=== PATIENT | male | born 1975 | race Two or more races ===

== ENCOUNTER 2018-05-08 15:39 | Outpatient (CLI) | payer OTHER | END 2018-05-15 10:08 | disposition home or self-care (01) | LOC: CFH 15:39 | PROVIDERS: ATTEND Nurse Practitioner Primary Care | DX: Z02.9 Encounter for administrative examinations, unspecified (principal) ==

== ENCOUNTER → 2018-05-23 | Outpatient (CLI) | payer OTHER | END | disposition home or self-care (01) | LOC: CFH 14:29 | PROVIDERS: ATTEND Physician Assistant | DX: M51.37 Other intervertebral disc degeneration, lumbosacral region (principal); M48.07 Spinal stenosis, lumbosacral region | CPT/HCPCS: 72148; 76700 ==

== ENCOUNTER 2018-11-28 13:04 | Inpatient (IN) | payer OTHER ==
[~2018-11-28] VITALS: Ht 188 cm; Wt 75.1 kg
--- NOTE | 2018-11-28 13:14 | NUR ---
pt brought in by ems after being found in his appt. he called 911 prior to losing responsiveness. he arrived to our e.r. w an IO piv, and supplemental o2 via mask.
[2018-11-28] MEDS ORDERED: KETAMINE 10 MG/ML, 20ML ONE (13:16)
[2018-11-28] MEDS: PROPOFOL 100 ML IV PRN ×3 (13:19→20:36)
--- NOTE | 2018-11-28 13:20 | NUR ---
unable to obtain background data from pt or ems. our clinical screen is incomplete
[2018-11-28] MEDS ORDERED: SODIUM CHLORIDE FLUSH 10ML SYR IVF ONE (13:30)
[2018-11-28] MEDS ORDERED: SUCCINYLCHOLINE 20 MG/ML, 10ML IVPush ONE ×2 (13:30)
[2018-11-28] MEDS ORDERED: KETAMINE 100 MG/ML, 5ML IV ONE (13:30)
[2018-11-28] MEDS ORDERED: methylPREDNISolone SOD SUCC 125 MG/2 ML IVP ONE (13:30)
[2018-11-28 13:43] LABS: FIO2 100 %
[2018-11-28] MEDS ORDERED: FENTANYL PF 100 MCG/2ML ONE ×2 (13:44→14:07)
[2018-11-28] MEDS: FENTANYL PF 100 MCG/2ML IVPush PRN ×2 (13:46→14:11)
[2018-11-28] MEDS ORDERED: DEXAMETHASONE 4 MG/ML, 1ML IVPush ONE (14:00)
[2018-11-28] MEDS ORDERED: PIPERACILLIN/TAZO/PMX 4.5GM 100 ML IV ONE (14:00)
[2018-11-28] MEDS ORDERED: DEXAMETHASONE 4 MG/ML, 5ML ONE (14:07)
[2018-11-28 14:08] LABS: BASOPHILS % (AUTO) 0 % (0-1); EOSINOPHILS % (AUTO) 0 % (1-7); LYMPHOCYTES # (AUTO) 0.68 x10^3/uL (1-3.4); LYMPHOCYTES % (AUTO) 7 % (22-44); MD MORPH REVIEW ONLY; MEAN CORPUSCULAR HEMOGLOBIN 17.9 pg (27.5-34.5); MEAN PLATELET VOLUME 7.2 fL (7.4-10.4); MONOCYTES # (AUTO) 0.54 x10^3/uL (0.2-0.8); MONOCYTES % (AUTO) 6 % (2-9); NEUTROPHILS % (AUTO) 87 % (42-75); PLATELET COUNT 123 x10^3/uL (130-400); RED BLOOD COUNT 5.88 x10^6/uL (4.38-5.82)
[2018-11-28 14:10] LABS: MEAN CORPUSCULAR HGB CONC 29.9 g/dL (33.2-36.2); RED CELL DISTRIBUTION WIDTH 25.2 % (9.4-14.8)
[2018-11-28 14:11] LABS: ANISOCYTOSIS 2+; HYPOCHROMIA 1+; POLYCHROMASIA 1+
[2018-11-28 14:12] LABS: <PLATELET ESTIMATE> ADEQUATE; <PLT MORPHOLOGY> NORMAL PLT MORPH; MICROCYTOSIS 1+; TARGET CELLS 1+
[2018-11-28 14:13] LABS: ALANINE AMINOTRANSFERASE 63 U/L (12-78); ALBUMIN 3.6 g/dL (3.4-5.0); ANION GAP 14 mmol/L (5-15); CALCIUM 7.5 mg/dL (8.5-10.1); CHLORIDE 85 mmol/L (98-107); CREATININE 0.76 mg/dL (0.7-1.3)
[2018-11-28 14:16] LABS: ALKALINE PHOSPHATASE 102 U/L (45-117); BILIRUBIN,TOTAL 1.5 mg/dL (0.2-1.0); TOTAL PROTEIN 6.9 g/dL (6.4-8.2)
[2018-11-28 14:20] LABS: AMPHETAMINE SCREEN, URINE Negative (Negative); BARBITURATE SCREEN, URINE Negative (Negative); BENZODIAZEPINE SCREEN, URINE Negative (Negative); CANNABINOID SCREEN, URINE Negative (Negative); COCAINE SCREEN, URINE Negative (Negative); METHADONE SCREEN, URINE Negative (Negative); OPIATE SCREEN, URINE Negative (Negative)
[2018-11-28] MEDS ORDERED: FENTANYL PF 2,500 MCG in SODIUM CHLORIDE 0.9% 200 ML IV PRN (14:30)
[2018-11-28] MEDS ORDERED: FENTANYL PF 100 MCG/2ML IVPush PRN ×2 (14:30→16:30)
--- NOTE | 2018-11-28 14:32 | NUR ---
Per EMS dispatch, pt's age is 43
[2018-11-28] MEDS ORDERED: PROPOFOL 10 MG/ML, 100ML IV ONE (14:33)
[2018-11-28] MEDS ORDERED: SUCCINYLCHOLINE 20 MG/ML, 10ML ONE (14:33)
[2018-11-28] MEDS ORDERED: ETOMIDATE 20 MG/10 ML ONE (14:33)
[2018-11-28 14:54] LABS: CULTURE INDICATED? YES; MICROSCOPIC INDICATED
--- NOTE | 2018-11-28 15:21 | NUR ---
Pt back from CT
[2018-11-28] MEDS ORDERED: OMNIPAQUE 350 MG/ML, 150 ML BOTTLE ONE (15:24)
[2018-11-28] MEDS ORDERED: SODIUM CHLORIDE 0.9% 1,000ML IVBOLUS ONE (16:00)
[2018-11-28] MEDS ORDERED: SODIUM CHLORIDE 0.9% 1,000 ML IV SCH (16:03)
[2018-11-28] MEDS ORDERED: BISACODYL 10 MG SUPP PR PRN (16:30)
[2018-11-28] MEDS ORDERED: LIDOCAINE-MPF 1%, 2ML ENDO PRN (16:30)
[2018-11-28] MEDS ORDERED: SENNA/DOCUSATE TABLET NG PRN (16:30)
[2018-11-28] MEDS ORDERED: SENNA 176 MG/5 ML ORAL SOL NG PRN (16:30)
[2018-11-28] MEDS ORDERED: LACTULOSE 20 GM/30 ML UDC NG PRN (16:30)
[2018-11-28] MEDS ORDERED: ONDANSETRON 2MG/ML, 2ML IVPush PRN (16:30)
[2018-11-28] MEDS ORDERED: ACETAMINOPHEN 325 MG TABLET PO PRN (16:30)
[2018-11-28] MEDS ORDERED: PHARMACY MAY ADJ FOR RENAL FX MC SCH (16:30)
[2018-11-28] MEDS ORDERED: HALOPERIDOL 5 MG/ML IV PRN (17:00)
[2018-11-28 17:06] LABS: ANION GAP 13 mmol/L (5-15); CALCIUM 6.8 mg/dL (8.5-10.1); CHLORIDE 92 mmol/L (98-107)
[2018-11-28 17:09] LABS: TROPONIN I < 0.015 ng/mL (0.000-0.045)
[2018-11-28 17:43] VITALS: BP 107/74
[2018-11-28] MEDS: LINEZOLID PMX 600MG/300ML 300 ML IV SCH (17:43)
[2018-11-28] MEDS: DEXAMETHASONE 4 MG/ML, 1ML IVPush SCH ×2 (17:43→22:41)
[2018-11-28] MEDS: ENOXAPARIN 40 MG/0.4 ML SQ SCH (17:44)
[2018-11-28] MEDS: ALBUTEROL/IPRATROPIUM 2.5MG/0.5MG, 3 ML INLINE SCH ×2 (18:48→22:16)
[2018-11-28 20:05] LABS: ANION GAP 14 mmol/L (5-15); CALCIUM 7.6 mg/dL (8.5-10.1); CHLORIDE 94 mmol/L (98-107); CREATININE 0.77 mg/dL (0.7-1.3)
[2018-11-28] MEDS: FAMOTIDINE 20 MG/2 ML IVPush SCH (20:31)
[2018-11-28] MEDS: MIDAZOLAM 1 MG/ML, 2ML IVPush PRN (20:31)
[2018-11-28 22:33] LABS: TROPONIN I < 0.015 ng/mL (0.000-0.045)
[2018-11-28] MEDS: PIPERACILLIN/TAZO/PMX 3.375GM 50 ML IV SCH (22:40)
[2018-11-29] MEDS: PROPOFOL 100 ML IV PRN ×6 (00:13→19:23)
[2018-11-29] MEDS: MIDAZOLAM 1 MG/ML, 2ML IVPush PRN ×3 (00:13→06:01)
[2018-11-29 01:07] LABS: ANION GAP 11 mmol/L (5-15); CALCIUM 7.9 mg/dL (8.5-10.1); CHLORIDE 97 mmol/L (98-107); CREATININE 0.73 mg/dL (0.7-1.3)
[2018-11-29] MEDS: ALBUTEROL/IPRATROPIUM 2.5MG/0.5MG, 3 ML INLINE SCH ×6 (02:41→22:17)
[2018-11-29] MEDS: DEXAMETHASONE 4 MG/ML, 1ML IVPush SCH ×6 (02:54→22:11)
[2018-11-29] MEDS: PIPERACILLIN/TAZO/PMX 3.375GM 50 ML IV SCH ×4 (02:55→20:24)
[2018-11-29 04:00] VITALS: BP 117/71
[2018-11-29 04:32] LABS: MEAN CORPUSCULAR HEMOGLOBIN 18.2 pg (27.5-34.5); MEAN CORPUSCULAR VOLUME 61.3 fL (81-97); MEAN PLATELET VOLUME 7.9 fL (7.4-10.4); PLATELET COUNT 115 x10^3/uL (130-400); RED BLOOD COUNT 4.85 x10^6/uL (4.38-5.82); RED CELL DISTRIBUTION WIDTH 23.9 % (9.4-14.8)
[2018-11-29 04:37] LABS: ALBUMIN 3.2 g/dL (3.4-5.0); ANION GAP 12 mmol/L (5-15); CALCIUM 8.1 mg/dL (8.5-10.1); CHLORIDE 99 mmol/L (98-107)
[2018-11-29 04:49] LABS: ALANINE AMINOTRANSFERASE 63 U/L (12-78); ALKALINE PHOSPHATASE 95 U/L (45-117); BILIRUBIN,TOTAL 1.3 mg/dL (0.2-1.0); CREATININE 0.78 mg/dL (0.7-1.3); TOTAL PROTEIN 6.3 g/dL (6.4-8.2)
[2018-11-29 05:00] LABS: MD YES; MEAN CORPUSCULAR HGB CONC 29.7 g/dL (33.2-36.2)
[2018-11-29] MEDS: LINEZOLID PMX 600MG/300ML 300 ML IV SCH ×2 (05:02→16:56)
[2018-11-29 05:04] LABS: BAND#(MANUAL) 0.78 x10^3/uL; BANDS%(MANUAL) 7 % (0-7); LYMPH#(MANUAL) 0.33 x10^3/uL (1-3.4); LYMPHS% (MANUAL) 3 % (22-44); SEG#(MANUAL) 9.99 x10^3/uL (1.8-6.8); SEGS% (MANUAL) 90 % (42-75)
[2018-11-29 05:05] LABS: ANISOCYTOSIS 1+; MICROCYTOSIS 1+
[2018-11-29 05:06] LABS: ACANTHOCYTES 1+; CRENATED 1+; HYPOCHROMIA 2+; POLYCHROMASIA 1+; TARGET CELLS 1+; TEAR DROPS 1+
[2018-11-29 05:07] LABS: <PLATELET ESTIMATE> DECREASED; <PLT MORPHOLOGY> NORMAL PLT MORPH; OVALOCYTES 1+
[2018-11-29] MEDS: FENTANYL PF 2,500 MCG in SODIUM CHLORIDE 0.9% 200 ML IV PRN (08:11)
[2018-11-29] MEDS ORDERED: SODIUM CHLORIDE 0.9% 1,000 ML IV SCH (08:30)
[2018-11-29 09:09] LABS: ANION GAP 11 mmol/L (5-15); CALCIUM 8.2 mg/dL (8.5-10.1); CHLORIDE 96 mmol/L (98-107); CREATININE 0.98 mg/dL (0.7-1.3)
[2018-11-29] MEDS: IRON SUCROSE COMPLEX 100MG/5ML IV SCH (10:36)
[2018-11-29] MEDS: DIAZEPAM 5 MG/ML, 10ML VIAL IVPush SCH ×4 (10:48→23:15)
--- NOTE | 2018-11-29 11:04 | NUR ---
TF GOAL: w/ propofol: Promote @ 85ml/hr off propofol: Promote @ 90ml/hr
[2018-11-29] MEDS: POTASSIUM CHLORIDE 20 MEQ, MAGNESIUM SULFATE 1 GM, THIAMINE 200 MG, FOLIC ACID 1 MG, MV... IV SCH (13:59)
[2018-11-29] MEDS: ENOXAPARIN 40 MG/0.4 ML SQ SCH (16:56)
[2018-11-29 16:57] LABS: ANION GAP 7 mmol/L (5-15); CALCIUM 8.1 mg/dL (8.5-10.1); CHLORIDE 99 mmol/L (98-107); CREATININE 0.91 mg/dL (0.7-1.3)
[2018-11-29] MEDS: FAMOTIDINE 20 MG/2 ML IVPush SCH (20:24)
[2018-11-30 00:45] LABS: ANION GAP 3 mmol/L (5-15); CALCIUM 8.1 mg/dL (8.5-10.1); CHLORIDE 101 mmol/L (98-107); CREATININE 0.86 mg/dL (0.7-1.3)
[2018-11-30] MEDS: ALBUTEROL/IPRATROPIUM 2.5MG/0.5MG, 3 ML INLINE SCH ×6 (02:21→22:16)
[2018-11-30] MEDS: DEXAMETHASONE 4 MG/ML, 1ML IVPush SCH ×2 (02:51→05:35)
[2018-11-30] MEDS: PIPERACILLIN/TAZO/PMX 3.375GM 50 ML IV SCH (03:06)
[2018-11-30] MEDS: DIAZEPAM 5 MG/ML, 10ML VIAL IVPush SCH ×6 (03:06→21:52)
[2018-11-30] MEDS: PROPOFOL 100 ML IV PRN ×5 (04:10→22:28)
[2018-11-30 04:20] LABS: MEAN CORPUSCULAR HEMOGLOBIN 18.5 pg (27.5-34.5); MEAN CORPUSCULAR VOLUME 61.6 fL (81-97); MEAN PLATELET VOLUME 8.1 fL (7.4-10.4); PLATELET COUNT 127 x10^3/uL (130-400); RED BLOOD COUNT 3.96 x10^6/uL (4.38-5.82); RED CELL DISTRIBUTION WIDTH 23.6 % (9.4-14.8)
[2018-11-30] MEDS: LINEZOLID PMX 600MG/300ML 300 ML IV SCH (05:09)
[2018-11-30 05:42] LABS: MD YES
[2018-11-30 05:44] LABS: BAND#(MANUAL) 0.22 x10^3/uL; BANDS%(MANUAL) 4 % (0-7); LYMPH#(MANUAL) 0.22 x10^3/uL (1-3.4); LYMPHS% (MANUAL) 4 % (22-44); MONOS#(MANUAL) 0.28 x10^3/uL (0.3-2.7); MONOS% (MANUAL) 5 % (2-9); NRBC % (MANUAL) 18 % (0-1); SEG#(MANUAL) 4.87 x10^3/uL (1.8-6.8); SEGS% (MANUAL) 87 % (42-75)
[2018-11-30 05:45] LABS: ANISOCYTOSIS 1+; HYPOCHROMIA 2+; MICROCYTOSIS 1+; POLYCHROMASIA 1+
[2018-11-30 05:46] LABS: OVALOCYTES 1+; TARGET CELLS 2+; TEAR DROPS 1+
[2018-11-30 05:47] LABS: <PLATELET ESTIMATE> DECREASED; <PLT MORPHOLOGY> NORMAL PLT MORPH
[2018-11-30] MEDS ORDERED: ALBUTEROL/IPRATROPIUM 2.5MG/0.5MG, 3 ML INLINE SCH ×2 (10:00→10:30)
[2018-11-30] MEDS ORDERED: ALBUTEROL/IPRATROPIUM 2.5MG/0.5MG, 3 ML ONE (10:13)
[2018-11-30] MEDS: IRON SUCROSE COMPLEX 100MG/5ML IV SCH (10:31)
[2018-11-30] MEDS: AMPICILLIN/SULBACTAM 3 GM in SODIUM CHLORIDE 0.9% 100 ML IV SCH ×3 (10:32→19:24)
[2018-11-30] MEDS: SODIUM CHLORIDE 0.9% 1,000 ML IV SCH (10:32)
[2018-11-30] MEDS: FENTANYL PF 2,500 MCG in SODIUM CHLORIDE 0.9% 200 ML IV PRN (12:59)
[2018-11-30] MEDS ORDERED: FUROSEMIDE 20 MG/2 ML IV ONE (14:00)
[2018-11-30] MEDS: POTASSIUM CHLORIDE 20 MEQ, MAGNESIUM SULFATE 1 GM, THIAMINE 200 MG, FOLIC ACID 1 MG, MV... IV SCH (14:14)
[2018-11-30] MEDS: ENOXAPARIN 40 MG/0.4 ML SQ SCH (14:14)
[2018-11-30 20:40] LABS: OCCULT BLOOD POSITIVE (NEGATIVE)
[2018-11-30 21:27] LABS: MEAN CORPUSCULAR HEMOGLOBIN 18.3 pg (27.5-34.5); MEAN CORPUSCULAR VOLUME 62.2 fL (81-97); MEAN PLATELET VOLUME 7.6 fL (7.4-10.4); PLATELET COUNT 142 x10^3/uL (130-400)
[2018-11-30 21:32] LABS: MEAN CORPUSCULAR HGB CONC 29.4 g/dL (33.2-36.2)
[2018-11-30 21:33] LABS: MD YES
[2018-11-30 21:47] LABS: ANISOCYTOSIS 1+; BAND#(MANUAL) 0.18 x10^3/uL; BANDS%(MANUAL) 4 % (0-7); HYPOCHROMIA 2+; LYMPH#(MANUAL) 0.35 x10^3/uL (1-3.4); LYMPHS% (MANUAL) 8 % (22-44); MICROCYTOSIS 1+; NRBC % (MANUAL) 15 % (0-1); OVALOCYTES 1+; POLYCHROMASIA 1+; SEG#(MANUAL) 3.87 x10^3/uL (1.8-6.8); SEGS% (MANUAL) 88 % (42-75); TARGET CELLS 1+; TEAR DROPS 1+
[2018-11-30 21:48] LABS: <PLATELET ESTIMATE> DECREASED; <PLT MORPHOLOGY> NORMAL PLT MORPH
[2018-11-30] MEDS: FAMOTIDINE 20 MG/2 ML IVPush SCH (21:52)
[2018-12-01 00:26] LABS: CLOSTRIDIUM DIFFICILE ANTIGEN NEGATIVE; CLOSTRIDIUM DIFFICILE TOXIN NEGATIVE (Negative)
[2018-12-01] MEDS: PROPOFOL 100 ML IV PRN (01:36)
[2018-12-01] MEDS: SODIUM CHLORIDE 0.9% 1,000 ML IV SCH (01:39)
[2018-12-01] MEDS: DIAZEPAM 5 MG/ML, 10ML VIAL IVPush SCH ×6 (02:10→22:43)
[2018-12-01] MEDS: AMPICILLIN/SULBACTAM 3 GM in SODIUM CHLORIDE 0.9% 100 ML IV SCH ×4 (02:11→21:09)
[2018-12-01] MEDS: ALBUTEROL/IPRATROPIUM 2.5MG/0.5MG, 3 ML INLINE SCH ×2 (02:16→06:45)
[2018-12-01 04:36] VITALS: BP 129/90
[2018-12-01 04:40] LABS: MEAN CORPUSCULAR HEMOGLOBIN 18.2 pg (27.5-34.5); MEAN CORPUSCULAR HGB CONC 29.2 g/dL (33.2-36.2); MEAN CORPUSCULAR VOLUME 62.4 fL (81-97); MEAN PLATELET VOLUME 8.1 fL (7.4-10.4); PLATELET COUNT 153 x10^3/uL (130-400); RED BLOOD COUNT 4.19 x10^6/uL (4.38-5.82); RED CELL DISTRIBUTION WIDTH 25.5 % (9.4-14.8)
[2018-12-01 04:51] LABS: MD YES
[2018-12-01 04:52] LABS: ANION GAP 2 mmol/L (5-15); CALCIUM 8.1 mg/dL (8.5-10.1); CHLORIDE 107 mmol/L (98-107); CREATININE 0.88 mg/dL (0.7-1.3)
[2018-12-01 04:55] LABS: MONOS#(MANUAL) 0.15 x10^3/uL (0.3-2.7); MONOS% (MANUAL) 4 % (2-9); NRBC % (MANUAL) 14 % (0-1)
[2018-12-01 04:56] LABS: ANISOCYTOSIS 1+; BAND#(MANUAL) 0.11 x10^3/uL; BANDS%(MANUAL) 3 % (0-7); HYPOCHROMIA 2+; LYMPH#(MANUAL) 0.67 x10^3/uL (1-3.4); LYMPHS% (MANUAL) 18 % (22-44); MICROCYTOSIS 1+; POLYCHROMASIA 1+; SEG#(MANUAL) 2.78 x10^3/uL (1.8-6.8); SEGS% (MANUAL) 75 % (42-75)
[2018-12-01 04:57] LABS: <PLATELET ESTIMATE> DECREASED; <PLT MORPHOLOGY> NORMAL PLT MORPH; OVALOCYTES 1+; TARGET CELLS 1+; TEAR DROPS 1+
[2018-12-01] MEDS: IRON SUCROSE COMPLEX 100MG/5ML IV SCH (08:28)
[2018-12-01] MEDS ORDERED: SODIUM CHLORIDE 0.9% 1,000 ML IV SCH (08:30)
[2018-12-01] MEDS ORDERED: DEXMEDETOMIDINE 200 MCG in SODIUM CHLORIDE 0.9% 48 ML IV PRN (08:30)
[2018-12-01] MEDS ORDERED: FUROSEMIDE 20 MG/2 ML IV ONE (08:30)
[2018-12-01] MEDS: POTASSIUM CHLORIDE 20 MEQ, MAGNESIUM SULFATE 1 GM, THIAMINE 200 MG, FOLIC ACID 1 MG, MV... IV SCH (16:10)
[2018-12-01] MEDS: ENOXAPARIN 40 MG/0.4 ML SQ SCH (16:13)
[2018-12-01] MEDS: FAMOTIDINE 20 MG/2 ML IVPush SCH (21:09)
[2018-12-02] MEDS: DIAZEPAM 5 MG/ML, 10ML VIAL IVPush SCH ×3 (02:36→07:41)
[2018-12-02] MEDS: AMPICILLIN/SULBACTAM 3 GM in SODIUM CHLORIDE 0.9% 100 ML IV SCH ×4 (02:36→23:03)
[2018-12-02 04:29] LABS: O2 FLOW ROOM AIR L/min
[2018-12-02 04:40] LABS: ANION GAP 7 mmol/L (5-15); CALCIUM 8.4 mg/dL (8.5-10.1); CHLORIDE 104 mmol/L (98-107); CREATININE 0.85 mg/dL (0.7-1.3)
[2018-12-02 05:43] LABS: MD YES; MEAN CORPUSCULAR HEMOGLOBIN 18.5 pg (27.5-34.5); MEAN CORPUSCULAR VOLUME 63.6 fL (81-97); MEAN PLATELET VOLUME 7.3 fL (7.4-10.4); PLATELET COUNT 168 x10^3/uL (130-400); RED BLOOD COUNT 5.23 x10^6/uL (4.38-5.82); RED CELL DISTRIBUTION WIDTH 26.7 % (9.4-14.8)
[2018-12-02 05:44] LABS: MEAN CORPUSCULAR HGB CONC 29.1 g/dL (33.2-36.2)
[2018-12-02 05:47] LABS: BAND#(MANUAL) 0.04 x10^3/uL; BANDS%(MANUAL) 1 % (0-7); EOS#(MANUAL) 0.04 x10^3/uL (0.0-0.4); EOS% (MANUAL) 1 % (1-7)
[2018-12-02 05:48] LABS: METAMYELOCYTES# (MANUAL) 0.04 x10^3/uL (0-0); METAMYELOCYTES% (MANUAL) 1 % (0-1); MONOS#(MANUAL) 0.44 x10^3/uL (0.3-2.7); MONOS% (MANUAL) 10 % (2-9); NRBC % (MANUAL) 17 % (0-1)
[2018-12-02 05:49] LABS: LYMPH#(MANUAL) 1.98 x10^3/uL (1-3.4); LYMPHS% (MANUAL) 45 % (22-44); SEG#(MANUAL) 1.85 x10^3/uL (1.8-6.8); SEGS% (MANUAL) 42 % (42-75)
[2018-12-02 05:50] LABS: ANISOCYTOSIS 1+; HYPOCHROMIA 2+; MICROCYTOSIS 1+; OVALOCYTES 1+; POLYCHROMASIA 1+; TARGET CELLS 1+; TEAR DROPS 1+
[2018-12-02 05:51] LABS: <PLATELET ESTIMATE> ADEQUATE; <PLT MORPHOLOGY> NORMAL PLT MORPH
[2018-12-02] MEDS ORDERED: SODIUM PHOSPHATE 20 MMOL in SODIUM CHLORIDE 0.9% 500 ML IV ONE (07:00)
[2018-12-02] MEDS: IRON SUCROSE COMPLEX 100MG/5ML IV SCH (07:41)
[2018-12-02] MEDS: POTASSIUM CHLORIDE 20 MEQ TAB.ER.PRT PO SCH ×2 (07:41→18:23)
[2018-12-02] MEDS ORDERED: ALUMINUM/MAG/SIMETHICONE 30 ML UDC PO PRN (10:00)
[2018-12-02] MEDS: POTASSIUM CHLORIDE 20 MEQ, MAGNESIUM SULFATE 1 GM, THIAMINE 200 MG, FOLIC ACID 1 MG, MV... IV SCH (18:22)
[2018-12-02] MEDS: ENOXAPARIN 40 MG/0.4 ML SQ SCH (18:23)
[2018-12-02 18:52] VITALS: BP 169/97
[2018-12-03 00:41] VITALS: BP 133/82
[2018-12-03] MEDS: AMPICILLIN/SULBACTAM 3 GM in SODIUM CHLORIDE 0.9% 100 ML IV SCH ×2 (05:02→11:48)
[2018-12-03 06:05] LABS: ANION GAP 6 mmol/L (5-15); CALCIUM 8.7 mg/dL (8.5-10.1); CHLORIDE 106 mmol/L (98-107); CREATININE 0.72 mg/dL (0.7-1.3)
[2018-12-03 06:51] LABS: MEAN CORPUSCULAR HEMOGLOBIN 18.5 pg (27.5-34.5); MEAN CORPUSCULAR VOLUME 63.4 fL (81-97); PLATELET COUNT 212 x10^3/uL (130-400); RED BLOOD COUNT 4.96 x10^6/uL (4.38-5.82); RED CELL DISTRIBUTION WIDTH 28.6 % (9.4-14.8)
[2018-12-03 06:52] LABS: MD YES
[2018-12-03 06:57] LABS: MEAN CORPUSCULAR HGB CONC 29.3 g/dL (33.2-36.2)
[2018-12-03 07:10] LABS: BAND#(MANUAL) 0.11 x10^3/uL; BANDS%(MANUAL) 2 % (0-7); LYMPH#(MANUAL) 1.65 x10^3/uL (1-3.4); LYMPHS% (MANUAL) 30 % (22-44); METAMYELOCYTES# (MANUAL) 0.06 x10^3/uL (0-0); METAMYELOCYTES% (MANUAL) 1 % (0-1); MONOS% (MANUAL) 9 % (2-9); MYELOCYTES# (MANUAL) 0.06 x10^3/uL (0-0); MYELOCYTES% (MANUAL) 1 % (0-0); OTHER CELLS # (MANUAL) 0.06 x10^3/uL (0-0); SEG#(MANUAL) 3.08 x10^3/uL (1.8-6.8); SEGS% (MANUAL) 56 % (42-75)
[2018-12-03 07:12] VITALS: BP 154/99
[2018-12-03 07:12] LABS: ANISOCYTOSIS 1+; HYPOCHROMIA 1+; MICROCYTOSIS 1+; OTHER CELLS % (MANUAL) 1 % (0-0); OVALOCYTES 1+; POLYCHROMASIA 1+
[2018-12-03 07:13] LABS: <PLATELET ESTIMATE> ADEQUATE; <PLT MORPHOLOGY> NORMAL PLT MORPH; TARGET CELLS 1+
[2018-12-03] MEDS: IRON SUCROSE COMPLEX 100MG/5ML IV SCH (11:48)
[2018-12-03 12:28] VITALS: BP 150/98
[2018-12-03] MEDS: POTASSIUM CHLORIDE 20 MEQ, MAGNESIUM SULFATE 1 GM, THIAMINE 200 MG, FOLIC ACID 1 MG, MV... IV SCH (15:54)
[2018-12-03] MEDS: AMOXICILLIN/CLAV 500-125MG TABLET PO SCH ×2 (15:54→22:36)
[2018-12-03] MEDS: FERROUS SULFATE 325 MG TABLET PO SCH (15:54)
[2018-12-03] MEDS: ENOXAPARIN 40 MG/0.4 ML SQ SCH (15:55)
[2018-12-03 18:53] VITALS: BP 155/106
[2018-12-03 19:12] VITALS: BP 148/101
[2018-12-03] MEDS ORDERED: METOPROLOL TARTRATE 25 MG TABLET PO SCH (19:30)
[2018-12-04 00:58] VITALS: BP 162/97
[2018-12-04 06:40] VITALS: BP 145/98
[2018-12-04] MEDS: AMOXICILLIN/CLAV 500-125MG TABLET PO SCH ×3 (07:56→22:56)
[2018-12-04] MEDS: FERROUS SULFATE 325 MG TABLET PO SCH ×2 (07:57→17:39)
[2018-12-04] MEDS ORDERED: MULTIVITAMIN 1 TABLET PO SCH (12:30)
[2018-12-04 13:06] VITALS: BP 154/101
[2018-12-04] MEDS: ENOXAPARIN 40 MG/0.4 ML SQ SCH (17:39)
[2018-12-04 19:36] VITALS: BP 149/92
[2018-12-05 00:48] VITALS: BP 132/90
[2018-12-05 06:09] LABS: CHLORIDE 108 mmol/L (98-107)
[2018-12-05 06:15] LABS: MEAN CORPUSCULAR HEMOGLOBIN 19.2 pg (27.5-34.5); PLATELET COUNT 296 x10^3/uL (130-400); RED BLOOD COUNT 4.95 x10^6/uL (4.38-5.82); RED CELL DISTRIBUTION WIDTH 34.8 % (9.4-14.8)
[2018-12-05 06:18] LABS: ALANINE AMINOTRANSFERASE 129 U/L (12-78); ALBUMIN 3.3 g/dL (3.4-5.0); ALKALINE PHOSPHATASE 103 U/L (45-117); ANION GAP 10 mmol/L (5-15); BILIRUBIN,TOTAL 0.6 mg/dL (0.2-1.0); CALCIUM 8.8 mg/dL (8.5-10.1); CREATININE 0.95 mg/dL (0.7-1.3); TOTAL PROTEIN 6.8 g/dL (6.4-8.2)
[2018-12-05 07:47] LABS: MD YES
[2018-12-05 07:50] LABS: ANISOCYTOSIS 1+; BAND#(MANUAL) 0.07 x10^3/uL; BANDS%(MANUAL) 1 % (0-7); EOS#(MANUAL) 0.14 x10^3/uL (0.0-0.4); EOS% (MANUAL) 2 % (1-7); HYPOCHROMIA 1+; LYMPH#(MANUAL) 1.85 x10^3/uL (1-3.4); LYMPHS% (MANUAL) 26 % (22-44); METAMYELOCYTES# (MANUAL) 0.07 x10^3/uL (0-0); METAMYELOCYTES% (MANUAL) 1 % (0-1); MICROCYTOSIS 1+; MONOS#(MANUAL) 1.28 x10^3/uL (0.3-2.7); MONOS% (MANUAL) 18 % (2-9); MYELOCYTES# (MANUAL) 0.07 x10^3/uL (0-0); MYELOCYTES% (MANUAL) 1 % (0-0); POLYCHROMASIA 1+; SEG#(MANUAL) 3.62 x10^3/uL (1.8-6.8); SEGS% (MANUAL) 51 % (42-75)
[2018-12-05 07:51] LABS: OVALOCYTES 1+; TARGET CELLS 1+
[2018-12-05 07:52] LABS: <PLATELET ESTIMATE> ADEQUATE; <PLT MORPHOLOGY> NORMAL PLT MORPH
== END 2018-12-05 07:30 | disposition left against medical advice (07) | DRG 208 ==
LOC: EDBD → ED 13:44 → EDIP 13:45 → MERGE 13:45 → ED 13:57 → CCU 15:57 → 3NE 12-02 13:36
PROVIDERS: ADMIT Internal Medicine; ATTEND Internal Medicine
PROC: 5A1945Z Respiratory Ventilation, 24-96 Consecutive Hours (ICD-10-PCS; principal; 2018-11-28)
PROC: 0BH18EZ Insertion of Endotracheal Airway into Trachea, Via Natural or Artificial Opening Endoscopic (ICD-10-PCS; 2018-11-28)
PROC: 0T9B70Z Drainage of Bladder with Drainage Device, Via Natural or Artificial Opening (ICD-10-PCS; 2018-11-28)
DX: J96.00 Acute respiratory failure, unspecified whether with hypoxia or hypercapnia (principal); G93.41 Metabolic encephalopathy; E87.1 Hypo-osmolality and hyponatremia; E87.2 Acidosis; J05.10 Acute epiglottitis without obstruction; Z99.11 Dependence on respirator [ventilator] status; D50.9 Iron deficiency anemia, unspecified; D69.6 Thrombocytopenia, unspecified; K62.3 Rectal prolapse; K76.0 Fatty (change of) liver, not elsewhere classified; M19.90 Unspecified osteoarthritis, unspecified site; Z53.21 Procedure and treatment not carried out due to patient leaving prior to being seen by health care provider
CPT/HCPCS: 36415; 36600; 74018; 84145; 99291; J3490; J7620; 70450; 70491; 71045; 74177; 80048; 80053; 80307; 81001; 82272; 82728; 82803; 83540; 83550; 83605; 83735; 84100; 84443; 84478; 84484; 85025; 87040; 87070; 87081; 87086; 87205; 87324; 87880; 93005; 93306; 94002; 94003; 94640; 96365; 96368; 96375; G0378; J0295; J1100; J1650; J1756; J2020; J2250; J2543; J2704; J3010; J3360; J3411; J3475; J3480; Q9967; J0330; J1940; J7030; J7040; J7050

== ENCOUNTER 2018-12-06 09:33 | Emergency (ER) | payer SELFPAY ==
[~2018-12-06] VITALS: Ht 193 cm; Wt 72.8 kg
--- NOTE | 2018-12-06 10:06 | NUR ---
PT LEFT AMA 2 DAYS AGO AFTER BEING INTUBATED AND ADMITTED FOR RESPIRATORY FAILURE/EPIGLOTITIS. PT REPORTS HIS ONLY SYMPTOM NOW IS WEAKNESS. PT DENIES CP, SOB, N/V/D, COKER, OR APAIN ANYWHERE. PT ON MONITOR. CHART UP FOR .
--- NOTE | 2018-12-06 10:38 | NUR ---
PT UP TO RESTROOM FOR UA SPECIMEN.
[2018-12-06 10:54] LABS: ALBUMIN 3.4 g/dL (3.4-5.0); ANION GAP 8 mmol/L (5-15); CALCIUM 8.3 mg/dL (8.5-10.1); CHLORIDE 110 mmol/L (98-107); CREATININE 0.81 mg/dL (0.7-1.3)
[2018-12-06 10:59] LABS: MEAN CORPUSCULAR HEMOGLOBIN 19.3 pg (27.5-34.5); MEAN CORPUSCULAR VOLUME 65.7 fL (81-97); MEAN PLATELET VOLUME 6.9 fL (7.4-10.4); PLATELET COUNT 376 x10^3/uL (130-400); RED BLOOD COUNT 4.91 x10^6/uL (4.38-5.82); RED CELL DISTRIBUTION WIDTH 34.5 % (9.4-14.8)
[2018-12-06 11:00] LABS: MD YES; MEAN CORPUSCULAR HGB CONC 29.3 g/dL (33.2-36.2)
[2018-12-06 11:09] LABS: ANISOCYTOSIS 2+; BAND#(MANUAL) 0.18 x10^3/uL; BANDS%(MANUAL) 3 % (0-7); EOS#(MANUAL) 0.12 x10^3/uL (0.0-0.4); EOS% (MANUAL) 2 % (1-7); HYPOCHROMIA 2+; LYMPH#(MANUAL) 1.59 x10^3/uL (1-3.4); LYMPHS% (MANUAL) 27 % (22-44); METAMYELOCYTES# (MANUAL) 0.12 x10^3/uL (0-0); METAMYELOCYTES% (MANUAL) 2 % (0-1); MICROCYTOSIS 1+; MONOS#(MANUAL) 0.65 x10^3/uL (0.3-2.7); MONOS% (MANUAL) 11 % (2-9); POLYCHROMASIA 1+; SEG#(MANUAL) 3.25 x10^3/uL (1.8-6.8); SEGS% (MANUAL) 55 % (42-75); TARGET CELLS 1+
[2018-12-06 11:11] LABS: <PLATELET ESTIMATE> ADEQUATE; <PLT MORPHOLOGY> NORMAL PLT MORPH; OVALOCYTES 1+
[2018-12-06 11:16] LABS: MICROSCOPIC NOT IND
[2018-12-06 11:20] LABS: CULTURE INDICATED? NO
[2018-12-06 11:36] VITALS: BP 114/82
== END 2018-12-06 12:06 | disposition home or self-care (01) ==
LOC: ED 11:10
DX: R53.1 Weakness (principal); E86.0 Dehydration
CPT/HCPCS: 36415; 80048; 81003; 82040; 83605; 83880; 85025; 93005; 99284